=== PATIENT | male | born 1960 | race Two or more races ===

== ENCOUNTER 2021-03-01 02:23 | Emergency (ER) | payer MEDICAID ==
[~2021-03-01] VITALS: Ht 177.8 cm; Wt 93.6 kg
[2021-03-01 02:38] VITALS: BP 142/100
[2021-03-01] MEDS ORDERED: CEPH-585 PO (04:20)
[2021-03-01] MEDS ORDERED: SULF1TAB49 PO (04:20)
== END 2021-03-01 04:43 | disposition home or self-care (01) ==
LOC: ER 02:25
DX: L02.11 Cutaneous abscess of neck (principal); L03.221 Cellulitis of neck; Z79.2 Long term (current) use of antibiotics; Z79.899 Other long term (current) drug therapy
CPT/HCPCS: 99283

== ENCOUNTER 2021-04-05 18:32 | Emergency (ER) | payer MEDICAID, OTHER ==
[~2021-04-05] VITALS: Ht 175.3 cm; Wt 100.0 kg
[~2021-04-05 18:32] MED LIST: CEPH-585 PO
[2021-04-05 20:00] VITALS: BP 139/92
[2021-04-05 20:35] LABS: CLARITY,URINE CLEAR (Clear); COLOR,URINE YELLOW (Yellow); GLUCOSE, URINE NEGATIVE (Neg); KETONES,URINE NEGATIVE (Neg); PROTEIN,URINE NEGATIVE (Neg); UA COLLECTION TYPE CLN CATCH MIDSTREAM
[2021-04-05 20:36] LABS: LEUKOCYTE ESTERASE ,URINE NEGATIVE (Neg); NITRITES, URINE NEGATIVE (Neg); OCCULT BLOOD,URINE TRACE-LYSED (Neg); UROBILINOGEN,URINE 0.2 E.U/dL (0.2-1.0)
[2021-04-05 20:40] LABS: MUCUS STRANDS MODERATE /LPF (Neg); SQUAMOUS EPITHELIAL CELL,UR FEW /LPF (FEW)
[2021-04-05 20:41] LABS: RBC,URINE 0-2 /HPF (0-2)
[2021-04-05 20:42] LABS: BACTERIA,URINE FEW /HPF (Neg); TRANSITIONAL EPI CELLS,URINE FEW /HPF
[2021-04-05 21:01] LABS: BASOPHILS # (AUTO) 0.1 X10'3 (0-0.2); BASOPHILS % (AUTO) 0.9 % (0-1); EOSINOPHILS # (AUTO) 0.4 X10'3 (0-0.9); EOSINOPHILS % (AUTO) 4.4 % (0-6); HEMATOCRIT 48.7 % (42.0-52.0); HEMOGLOBIN 16.8 g/dl (14.0-17.9); LYMPHOCYTES # (AUTO) 2.6 X10'3 (1.1-4.8); LYMPHOCYTES % (AUTO) 28.5 % (21-51); MEAN CORPUSCULAR HEMOGLOBIN 30.8 PG (27.0-31.0); MEAN CORPUSCULAR HGB CONC 34.6 g/dL (33.0-36.5); MEAN CORPUSCULAR VOLUME 89.1 FL (78-98); MEAN PLATELET VOLUME 7.8 FL (7.4-10.4); MONOCYTES # (AUTO) 0.8 X10'3 (0-0.9); NEUTROPHILS # (AUTO) 5.3 X10'3 (1.8-7.7); NEUTROPHILS % (AUTO) 57.2 % (42-75); PLATELET COUNT 323 X10'3 (140-440); RED BLOOD COUNT 5.47 X10'6 (4.70-6.10); RED CELL DISTRIBUTION WIDTH 14.3 % (11.5-14.5); WHITE BLOOD COUNT 9.3 X10'3 (4.5-11.0)
[2021-04-05 21:17] LABS: ALANINE AMINOTRANSFERASE 32 U/L (12-78); ALBUMIN 3.3 G/DL (3.4-5.0); ALBUMIN/GLOBULIN RATIO 0.8 (1.1-1.5); ALKALINE PHOSPHATASE 144 IU/L (46-116); ANION GAP 7 (8-16); ASPARTATE AMINO TRANSFERASE 17 U/L (10-37); BILIRUBIN,TOTAL 0.3 MG/DL (0.1-1.0); BLOOD UREA NITROGEN 18 MG/DL (7-18); BUN/CREATININE RATIO 13.6 (5.4-32.0); CALCIUM 8.9 MG/DL (8.5-10.1); CHLORIDE 106 MMOL/L (99-107); CREATININE 1.32 MG/DL (0.60-1.10); GLUCOSE 99 MG/DL (70-104); POTASSIUM 4.2 MMOL/L (3.5-5.1); SODIUM 142 MMOL/L (135-145); TOTAL CARBON DIOXIDE 28.9 MMOL/L (24-32); TOTAL PROTEIN 7.6 G/DL (6.4-8.2); eGFR 55 ML/MIN
== END 2021-04-06 01:16 | disposition left against medical advice (07) ==
LOC: ER 18:32
DX: R10.9 Unspecified abdominal pain (principal); Z53.21 Procedure and treatment not carried out due to patient leaving prior to being seen by health care provider
CPT/HCPCS: 36415; 80053; 81001; 85025; 87088

== ENCOUNTER 2021-04-27 17:03 | Emergency (ER) | payer OTHER ==
[~2021-04-27] VITALS: Ht 177.8 cm; Wt 104.0 kg
[~2021-04-27 17:03] MED LIST changes: +ALBU8.5H17 INH; +ASPI-1397 PO; +ATOR40TA72 PO; +AZIT-103 PO; +BENA10TA75 PO; +CARV6.253 PO; -CEPH-585 PO; +CLOP75TA34 PO; +FLO0.4C PO; +FURO20TA4 PO; +POTA10TA37 PO
--- NOTE | 2021-04-27 19:32 | NUR ---
pt was not in lobby at 1800 and returned to lobby
[2021-04-27 20:07] LABS: BASOPHILS # (AUTO) 0.1 X10'3 (0-0.2); BASOPHILS % (AUTO) 0.8 % (0-1); EOSINOPHILS # (AUTO) 0.3 X10'3 (0-0.9); EOSINOPHILS % (AUTO) 2.7 % (0-6); HEMATOCRIT 45.2 % (42.0-52.0); HEMOGLOBIN 15.6 g/dl (14.0-17.9); LYMPHOCYTES # (AUTO) 2.3 X10'3 (1.1-4.8); LYMPHOCYTES % (AUTO) 22.3 % (21-51); MEAN CORPUSCULAR HEMOGLOBIN 30.9 PG (27.0-31.0); MEAN CORPUSCULAR HGB CONC 34.4 g/dL (33.0-36.5); MEAN CORPUSCULAR VOLUME 89.8 FL (78-98); MEAN PLATELET VOLUME 8.3 FL (7.4-10.4); MONOCYTES # (AUTO) 1.1 X10'3 (0-0.9); MONOCYTES % (AUTO) 10.7 % (2-12); NEUTROPHILS # (AUTO) 6.5 X10'3 (1.8-7.7); NEUTROPHILS % (AUTO) 63.5 % (42-75); PLATELET COUNT 328 X10'3 (140-440); RED BLOOD COUNT 5.03 X10'6 (4.70-6.10); RED CELL DISTRIBUTION WIDTH 14.6 % (11.5-14.5); WHITE BLOOD COUNT 10.2 X10'3 (4.5-11.0)
[2021-04-27 20:25] LABS: ALANINE AMINOTRANSFERASE 50 U/L (12-78); ALBUMIN/GLOBULIN RATIO 0.8 (1.1-1.5); ALKALINE PHOSPHATASE 112 IU/L (46-116); ANION GAP 10 (8-16); ASPARTATE AMINO TRANSFERASE 21 U/L (10-37); BILIRUBIN,TOTAL 0.4 MG/DL (0.1-1.0); BLOOD UREA NITROGEN 15 MG/DL (7-18); BUN/CREATININE RATIO 11.6 (5.4-32.0); CALCIUM 8.6 MG/DL (8.5-10.1); CHLORIDE 111 MMOL/L (99-107); CREATININE 1.29 MG/DL (0.60-1.10); GLUCOSE 112 MG/DL (70-104); POTASSIUM 4.6 MMOL/L (3.5-5.1); SODIUM 146 MMOL/L (135-145); TOTAL CARBON DIOXIDE 25.2 MMOL/L (24-32); TOTAL PROTEIN 6.6 G/DL (6.4-8.2); eGFR 57 ML/MIN
[2021-04-27 20:31] LABS: C-REACTIVE PROTEIN 0.84 MG/DL (0.0-0.5); MAGNESIUM 2.4 MG/DL (1.5-2.4)
[2021-04-27] MEDS ORDERED: iohexol 350MG/ML 100ml bottle IV ONE (23:22)
[2021-04-28 00:03] VITALS: BP 116/78
[2021-04-28] MEDS ORDERED: NAPR-56 PO (03:03)
== END 2021-04-28 03:30 | disposition home or self-care (01) ==
LOC: ER 17:03
DX: M25.462 Effusion, left knee (principal); Z20.822 Contact with and (suspected) exposure to COVID-19; M25.562 Pain in left knee; R06.02 Shortness of breath; R07.89 Other chest pain; I25.10 Atherosclerotic heart disease of native coronary artery without angina pectoris; I50.9 Heart failure, unspecified; I11.0 Hypertensive heart disease with heart failure; I25.2 Old myocardial infarction; F17.200 Nicotine dependence, unspecified, uncomplicated; F15.90 Other stimulant use, unspecified, uncomplicated; Z72.89 Other problems related to lifestyle; Z60.2 Problems related to living alone; Z79.82 Long term (current) use of aspirin; Z79.2 Long term (current) use of antibiotics; Z79.899 Other long term (current) drug therapy
CPT/HCPCS: 36415; 71045; 71275; 73564; 80053; 83735; 83880; 84484; 85025; 85379; 85651; 86140; 87635; 93005; 99285; C9803; Q9967

== ENCOUNTER 2021-06-01 07:25 | Emergency (ER) | payer MEDICAID, OTHER ==
[~2021-06-01] VITALS: Ht 177.8 cm; Wt 104.5 kg
[~2021-06-01 07:25] MED LIST changes: -AZIT-103 PO
[2021-06-01] MEDS ORDERED: ipratropium/albuterol 3ml nebule NEB ONE (08:05)
[2021-06-01 08:19] LABS: BASOPHILS # (AUTO) 0.1 X10'3 (0-0.2); BASOPHILS % (AUTO) 0.8 % (0-1); EOSINOPHILS # (AUTO) 0.3 X10'3 (0-0.9); EOSINOPHILS % (AUTO) 2.6 % (0-6); HEMATOCRIT 49.3 % (42.0-52.0); HEMOGLOBIN 17.1 g/dl (14.0-17.9); LYMPHOCYTES # (AUTO) 2.4 X10'3 (1.1-4.8); LYMPHOCYTES % (AUTO) 23.4 % (21-51); MEAN CORPUSCULAR HEMOGLOBIN 31.1 PG (27.0-31.0); MEAN CORPUSCULAR HGB CONC 34.7 g/dL (33.0-36.5); MEAN CORPUSCULAR VOLUME 89.7 FL (78-98); MEAN PLATELET VOLUME 8.5 FL (7.4-10.4); MONOCYTES # (AUTO) 1.3 X10'3 (0-0.9); MONOCYTES % (AUTO) 12.3 % (2-12); NEUTROPHILS # (AUTO) 6.2 X10'3 (1.8-7.7); NEUTROPHILS % (AUTO) 60.9 % (42-75); PLATELET COUNT 305 X10'3 (140-440); RED BLOOD COUNT 5.49 X10'6 (4.70-6.10); RED CELL DISTRIBUTION WIDTH 14.5 % (11.5-14.5); WHITE BLOOD COUNT 10.2 X10'3 (4.5-11.0)
[2021-06-01 08:40] LABS: ALANINE AMINOTRANSFERASE 29 U/L (12-78); ALBUMIN 3.4 G/DL (3.4-5.0); ALBUMIN/GLOBULIN RATIO 0.8 (1.1-1.5); ALKALINE PHOSPHATASE 118 IU/L (46-116); ASPARTATE AMINO TRANSFERASE 19 U/L (10-37); BILIRUBIN,TOTAL 0.4 MG/DL (0.1-1.0); BLOOD UREA NITROGEN 16 MG/DL (7-18); BUN/CREATININE RATIO 12.5 (5.4-32.0); CALCIUM 8.9 MG/DL (8.5-10.1); CREATININE 1.28 MG/DL (0.60-1.10); GLUCOSE 102 MG/DL (70-104); TOTAL CARBON DIOXIDE 30.2 MMOL/L (24-32); TOTAL PROTEIN 7.6 G/DL (6.4-8.2); eGFR 57 ML/MIN
[2021-06-01 09:10] LABS: ANION GAP 7 (8-16); CHLORIDE 106 MMOL/L (99-107); POTASSIUM 4.4 MMOL/L (3.5-5.1); SODIUM 143 MMOL/L (135-145)
[2021-06-01 13:16] VITALS: BP 135/91
== END 2021-06-01 13:24 | disposition home or self-care (01) ==
LOC: ER 07:26
DX: I50.9 Heart failure, unspecified (principal); Z20.822 Contact with and (suspected) exposure to COVID-19; R06.02 Shortness of breath; R05.9 Cough, unspecified; I25.10 Atherosclerotic heart disease of native coronary artery without angina pectoris; I11.0 Hypertensive heart disease with heart failure; I25.2 Old myocardial infarction; F15.90 Other stimulant use, unspecified, uncomplicated; Z60.2 Problems related to living alone; Z72.89 Other problems related to lifestyle; Z79.82 Long term (current) use of aspirin; Z79.899 Other long term (current) drug therapy
CPT/HCPCS: 36415; 71045; 80053; 83880; 84484; 85025; 87635; 93005; 94640; 99285; C9803; 94760

== ENCOUNTER 2021-06-23 13:44 | Emergency (ER) | payer MEDICAID ==
[~2021-06-23] VITALS: Ht 177.8 cm; Wt 104.5 kg
[2021-06-23] MEDS ORDERED: acetaminophen 325mg tablet PO ONE (14:35)
[2021-06-23 15:09] LABS: BASOPHILS % (AUTO) 0.5 % (0-1); EOSINOPHILS # (AUTO) 0.3 X10'3 (0-0.9); EOSINOPHILS % (AUTO) 3.4 % (0-6); HEMATOCRIT 50.2 % (42.0-52.0); HEMOGLOBIN 16.9 g/dl (14.0-17.9); LYMPHOCYTES % (AUTO) 22.3 % (21-51); MEAN CORPUSCULAR HEMOGLOBIN 30.2 PG (27.0-31.0); MEAN CORPUSCULAR HGB CONC 33.7 g/dL (33.0-36.5); MEAN CORPUSCULAR VOLUME 89.8 FL (78-98); MEAN PLATELET VOLUME 8.4 FL (7.4-10.4); MONOCYTES % (AUTO) 11.4 % (2-12); NEUTROPHILS # (AUTO) 5.7 X10'3 (1.8-7.7); NEUTROPHILS % (AUTO) 62.4 % (42-75); PLATELET COUNT 286 X10'3 (140-440); RED BLOOD COUNT 5.59 X10'6 (4.70-6.10); RED CELL DISTRIBUTION WIDTH 14.5 % (11.5-14.5); WHITE BLOOD COUNT 9.1 X10'3 (4.5-11.0)
[2021-06-23 15:23] LABS: ALANINE AMINOTRANSFERASE 37 U/L (12-78); ALBUMIN 3.4 G/DL (3.4-5.0); ALBUMIN/GLOBULIN RATIO 0.9 (1.1-1.5); ALKALINE PHOSPHATASE 127 IU/L (46-116); ANION GAP 7 (8-16); ASPARTATE AMINO TRANSFERASE 28 U/L (10-37); BILIRUBIN,TOTAL 0.6 MG/DL (0.1-1.0); BLOOD UREA NITROGEN 20 MG/DL (7-18); BUN/CREATININE RATIO 15.4 (5.4-32.0); CALCIUM 8.9 MG/DL (8.5-10.1); CHLORIDE 104 MMOL/L (99-107); GLUCOSE 82 MG/DL (70-104); POTASSIUM 4.1 MMOL/L (3.5-5.1); SODIUM 143 MMOL/L (135-145); TOTAL CARBON DIOXIDE 31.6 MMOL/L (24-32); TOTAL PROTEIN 7.4 G/DL (6.4-8.2); eGFR 56 ML/MIN
[2021-06-23] MEDS ORDERED: FURO-150 PO (17:17)
[2021-06-23] MEDS ORDERED: FLO0.4C PO (17:33)
[2021-06-23 17:45] VITALS: BP 188/96
== END 2021-06-23 17:46 | disposition home or self-care (01) ==
LOC: ER 13:45
DX: I11.0 Hypertensive heart disease with heart failure (principal); Z20.822 Contact with and (suspected) exposure to COVID-19; I50.9 Heart failure, unspecified; R06.02 Shortness of breath; R51.9 Headache, unspecified; I25.10 Atherosclerotic heart disease of native coronary artery without angina pectoris; I25.2 Old myocardial infarction; F17.200 Nicotine dependence, unspecified, uncomplicated; F15.90 Other stimulant use, unspecified, uncomplicated; Z72.89 Other problems related to lifestyle; Z60.2 Problems related to living alone; Z79.82 Long term (current) use of aspirin; Z79.899 Other long term (current) drug therapy
CPT/HCPCS: 36415; 71045; 80053; 83880; 84145; 85025; 87635; 93005; 99285; C9803

== ENCOUNTER 2021-07-06 20:45 | Emergency (ER) | payer MEDICAID ==
[~2021-07-06] VITALS: Ht 177.8 cm; Wt 101.8 kg
[~2021-07-06 20:45] MED LIST changes: +FURO-150 PO
[2021-07-06 22:03] LABS: BASOPHILS # (AUTO) 0.1 X10'3 (0-0.2); BASOPHILS % (AUTO) 0.7 % (0-1); EOSINOPHILS # (AUTO) 0.4 X10'3 (0-0.9); EOSINOPHILS % (AUTO) 3.3 % (0-6); HEMATOCRIT 47.7 % (42.0-52.0); HEMOGLOBIN 16.1 g/dl (14.0-17.9); LYMPHOCYTES # (AUTO) 1.6 X10'3 (1.1-4.8); LYMPHOCYTES % (AUTO) 13.8 % (21-51); MEAN CORPUSCULAR HEMOGLOBIN 29.8 PG (27.0-31.0); MEAN CORPUSCULAR HGB CONC 33.7 g/dL (33.0-36.5); MEAN CORPUSCULAR VOLUME 88.3 FL (78-98); MEAN PLATELET VOLUME 8.1 FL (7.4-10.4); MONOCYTES # (AUTO) 1.2 X10'3 (0-0.9); MONOCYTES % (AUTO) 10.9 % (2-12); NEUTROPHILS % (AUTO) 71.3 % (42-75); PLATELET COUNT 346 X10'3 (140-440); RED CELL DISTRIBUTION WIDTH 14.8 % (11.5-14.5); WHITE BLOOD COUNT 11.3 X10'3 (4.5-11.0)
[2021-07-06 22:17] LABS: ALANINE AMINOTRANSFERASE 27 U/L (12-78); ALBUMIN 3.2 G/DL (3.4-5.0); ALBUMIN/GLOBULIN RATIO 0.8 (1.1-1.5); ALKALINE PHOSPHATASE 109 IU/L (46-116); ANION GAP 9 (8-16); ASPARTATE AMINO TRANSFERASE 22 U/L (10-37); BILIRUBIN,TOTAL 0.5 MG/DL (0.1-1.0); BLOOD UREA NITROGEN 20 MG/DL (7-18); BUN/CREATININE RATIO 13.6 (5.4-32.0); CALCIUM 8.3 MG/DL (8.5-10.1); CHLORIDE 103 MMOL/L (99-107); CREATININE 1.47 MG/DL (0.60-1.10); GLUCOSE 103 MG/DL (70-104); POTASSIUM 3.7 MMOL/L (3.5-5.1); SODIUM 138 MMOL/L (135-145); TOTAL CARBON DIOXIDE 25.9 MMOL/L (24-32); eGFR 49 ML/MIN
[2021-07-06] MEDS ORDERED: dexamethasone sod phosphate 10mg/ml inj PO STA (22:47)
--- NOTE | 2021-07-06 22:57 | NUR ---
I don't have a med list and i don't know them by heart"
[2021-07-06] MEDS ORDERED: AZIT-83 PO (23:14)
[2021-07-06] MEDS ORDERED: IBUP-1986 PO (23:14)
[2021-07-06] MEDS ORDERED: PRED20TA PO (23:14)
[2021-07-06 23:34] VITALS: BP 126/93
== END 2021-07-06 23:38 | disposition home or self-care (01) ==
LOC: ER 20:45
DX: J40 Bronchitis, not specified as acute or chronic (principal); Z20.822 Contact with and (suspected) exposure to COVID-19; I25.10 Atherosclerotic heart disease of native coronary artery without angina pectoris; I11.0 Hypertensive heart disease with heart failure; I50.9 Heart failure, unspecified; I25.2 Old myocardial infarction; F15.90 Other stimulant use, unspecified, uncomplicated; Z72.89 Other problems related to lifestyle; Z79.82 Long term (current) use of aspirin; Z79.2 Long term (current) use of antibiotics; Z79.899 Other long term (current) drug therapy
CPT/HCPCS: 36415; 71045; 80053; 83880; 84484; 85025; 87635; 93005; 99285; C9803; J1100

== ENCOUNTER 2021-11-11 09:08 | Emergency (ER) | payer MEDICAID ==
[~2021-11-11] VITALS: Ht 177.8 cm; Wt 100.0 kg
[~2021-11-11 09:08] MED LIST changes: -FURO-150 PO; +IBUP-1986 PO
[2021-11-11 09:16] VITALS: BP 129/95
[2021-11-11] MEDS ORDERED: FLO0.4C PO (10:31)
[2021-11-11] MEDS ORDERED: CLOP75TA15 PO (10:31)
[2021-11-11] MEDS ORDERED: FURO-150 PO (10:32)
[2021-11-11] MEDS ORDERED: POTA-188 PO (10:33)
[2021-11-11] MEDS ORDERED: CARV-49 PO (10:33)
== END 2021-11-11 10:49 | disposition home or self-care (01) ==
LOC: ER 09:10
DX: I11.0 Hypertensive heart disease with heart failure (principal); I25.10 Atherosclerotic heart disease of native coronary artery without angina pectoris; Z76.0 Encounter for issue of repeat prescription; F15.10 Other stimulant abuse, uncomplicated
CPT/HCPCS: 99281

== ENCOUNTER 2021-11-25 02:00 | Emergency (ER) | payer MEDICAID ==
[~2021-11-25] VITALS: Ht 177.8 cm; Wt 100.0 kg
[~2021-11-25 02:00] MED LIST changes: +CARV-49 PO; +CLOP75TA15 PO; +FURO-150 PO
[2021-11-25] MEDS ORDERED: LIDOcaine/epinephrine/tetracaine TOPICAL sol 3 ML syringe TOP ONE (02:45)
[2021-11-25 03:21] VITALS: BP 130/82
[2021-11-25] MEDS ORDERED: bacitracin 15gm ointment TP ONE (03:50)
== END 2021-11-25 04:02 | disposition home or self-care (01) ==
LOC: ER 02:00
DX: S91.312A Laceration without foreign body, left foot, initial encounter (principal); I11.0 Hypertensive heart disease with heart failure; F15.10 Other stimulant abuse, uncomplicated; Z79.899 Other long term (current) drug therapy; W22.8XXA Striking against or struck by other objects, initial encounter; Y93.89 Activity, other specified; Y92.89 Other specified places as the place of occurrence of the external cause; Y99.8 Other external cause status
CPT/HCPCS: 99283; J3490

== ENCOUNTER 2022-01-24 14:35 | Inpatient (IN) | payer MEDICAID ==
[~2022-01-24] VITALS: Ht 177.8 cm; Wt 109.1 kg
[~2022-01-24 14:35] MED LIST changes: -FURO-150 PO
[2022-01-24] MEDS ORDERED: normal saline 1000ML IV soln IVB ONE (14:50)
[2022-01-24 15:05] LABS: BASOPHILS % (AUTO) 0.1 % (0-1); EOSINOPHILS % (AUTO) 0 % (0-6); HEMOGLOBIN 17.6 g/dl (14.0-17.9); LYMPHOCYTES # (AUTO) 1.3 X10'3 (1.1-4.8); LYMPHOCYTES % (AUTO) 6.5 % (21-51); MEAN CORPUSCULAR HEMOGLOBIN 30.4 PG (27.0-31.0); MEAN CORPUSCULAR HGB CONC 33.8 g/dL (33.0-36.5); MEAN CORPUSCULAR VOLUME 89.7 FL (78-98); MEAN PLATELET VOLUME 8.2 FL (7.4-10.4); MONOCYTES # (AUTO) 1.6 X10'3 (0-0.9); MONOCYTES % (AUTO) 7.7 % (2-12); NEUTROPHILS # (AUTO) 17.6 X10'3 (1.8-7.7); NEUTROPHILS % (AUTO) 85.7 % (42-75); PLATELET COUNT 218 X10'3 (140-440); RED CELL DISTRIBUTION WIDTH 15.7 % (11.5-14.5); WHITE BLOOD COUNT 20.5 X10'3 (4.5-11.0)
[2022-01-24 15:19] LABS: ALANINE AMINOTRANSFERASE 45 U/L (12-78); ALBUMIN 3.1 G/DL (3.4-5.0); ALBUMIN/GLOBULIN RATIO 0.6 (1.1-1.5); ANION GAP 11 (8-16); ASPARTATE AMINO TRANSFERASE 51 U/L (10-37); BILIRUBIN,TOTAL 0.8 MG/DL (0.1-1.0); BLOOD UREA NITROGEN 14 MG/DL (7-18); BUN/CREATININE RATIO 9.1 (5.4-32.0); CALCIUM 8.9 MG/DL (8.5-10.1); CHLORIDE 102 MMOL/L (99-107); CREATININE 1.54 MG/DL (0.60-1.10); GLUCOSE 118 MG/DL (70-104); POTASSIUM 3.2 MMOL/L (3.5-5.1); SODIUM 137 MMOL/L (135-145); TOTAL CARBON DIOXIDE 24.3 MMOL/L (24-32); TOTAL PROTEIN 8.3 G/DL (6.4-8.2); eGFR 46 ML/MIN
[2022-01-24 15:53] LABS: CLARITY,URINE CLEAR (Clear); GLUCOSE, URINE NEGATIVE (Neg); KETONES,URINE NEGATIVE (Neg); LEUKOCYTE ESTERASE ,URINE NEGATIVE (Neg); NITRITES, URINE NEGATIVE (Neg); OCCULT BLOOD,URINE MODERATE (Neg); PH,URINE 7.5 (4.8-8.0); PROTEIN,URINE >=300 mg/dl (Neg)
[2022-01-24 15:54] LABS: URINE AMPHETAMINE SCREEN NEGATIVE (Neg); URINE BARBITUATE SCREEN NEGATIVE (Neg); URINE BENZODIAZEPINES SCREEN NEGATIVE (Neg); URINE CANNABINOID SCREEN NEGATIVE (Neg); URINE COCAINE SCREEN NEGATIVE (Neg); URINE METHADONE SCREEN NEGATIVE (Neg); URINE OPIATE SCREEN NEGATIVE (Neg); URINE PHENCYCLIDINE SCREEN NEGATIVE (Neg)
[2022-01-24 15:55] LABS: ALKALINE PHOSPHATASE 107 IU/L (46-116); ETHANOL < 0.010 GM/DL (0.0-0.010)
[2022-01-24 15:56] LABS: COLOR,URINE DARK YELLOW (Yellow); UA COLLECTION TYPE CLN CATCH MIDSTREAM
[2022-01-24 15:59] LABS: BACTERIA,URINE NONE SEEN /HPF (Neg); SQUAMOUS EPITHELIAL CELL,UR FEW /LPF (FEW)
[2022-01-24 16:00] LABS: TRANSITIONAL EPI CELLS,URINE FEW /HPF
[2022-01-24] MEDS ORDERED: CefTRIAXone 2gm/D5W 50ml BAG 50 ML IV ONE (16:10)
[2022-01-24] MEDS ORDERED: normal saline 1000ML IV soln IV ONE (16:10)
[2022-01-24] MEDS ORDERED: magnesium Cl slow-release 64mg tablet PO PRN (17:25)
[2022-01-24] MEDS ORDERED: POTASSIUM BICARB 20meq eff tab 20 MEQ TABLET.EFF PO PRN (17:25)
[2022-01-24] MEDS ORDERED: magnesium 2GM in 50ml NS 50 ML IV PRN (17:25)
[2022-01-24] MEDS ORDERED: acetaminophen 325mg tablet PO PRN (17:25)
[2022-01-24] MEDS ORDERED: ondansetron/PF 4mg/2ml inj IV PRN (17:25)
[2022-01-24] MEDS ORDERED: magnesium hydroxide 30ml (MOM) UD suspension PO PRN (17:25)
[2022-01-24] MEDS ORDERED: potassium CL 10mEq/100ml bag 100 ML IV PRN (17:25)
[2022-01-24] MEDS ORDERED: magnesium 4gm in 100ml NS 100 ML IV PRN (17:25)
[2022-01-24] MEDS ORDERED: mag hydrox/Alum hydrox/simeth 30ml oral suspension PO PRN (17:25)
[2022-01-24] MEDS ORDERED: vancomycin 1,750 MG in NS 350ml IV soln IV ONE (18:00)
--- NOTE | 2022-01-24 18:29 | NUR ---
Received patient from [facility], awake and oriented x2-3. On room air, no resp distress. Pt appears uncomfortable but denied any pain on my assessment. So its possibly metabolic demand. he is ST on monitor, hr in 120s-130s. Dr Matias and Anjel Mckinney both notified. Iv bolus in progress as ordered. Rocephin started. Pharm contacted for Iv vanco dose. Report given to pm rn for resumption of care.
[2022-01-24 19:15] LABS: MAGNESIUM 1.7 MG/DL (1.5-2.4); POTASSIUM 3.3 MMOL/L (3.5-5.1)
[2022-01-24] MEDS: K and/or MAG REPLACEMENT MC SCH (19:50)
[2022-01-24] MEDS: docusate sod 100mg capsule PO SCH (19:55)
[2022-01-24] MEDS: normal saline 1000ml 1,000 ML IV SCH (19:59)
--- NOTE | 2022-01-24 22:44 | NUR ---
Page out to Dr. Del Rio @ [address]. [address] Del Rio verbal order Ibuprofen 600mg [id number] Prn.
[2022-01-24] MEDS ORDERED: ibuprofen 200mg tablet PO PRN ×2 (22:50→23:22)
[2022-01-24] MEDS ORDERED: ibuprofen 200mg tablet PO SCH (23:22)
[2022-01-25] MEDS: normal saline 1000ml 1,000 ML IV SCH ×2 (04:12→13:31)
--- NOTE | 2022-01-25 04:48 | NUR ---
PT PLACED ON 1L O2 WHILE SLEEPING FOR SLEEP APNEA.
[2022-01-25] MEDS ORDERED: vancomycin/NS 1 GM ADD-VANTAGE 250 ML IV SCH ×2 (06:00→20:00)
[2022-01-25 07:00] LABS: BASOPHILS % (AUTO) 0.2 % (0-1); EOSINOPHILS % (AUTO) 0 % (0-6); HEMATOCRIT 44.8 % (42.0-52.0); HEMOGLOBIN 15.3 g/dl (14.0-17.9); LYMPHOCYTES # (AUTO) 1.4 X10'3 (1.1-4.8); LYMPHOCYTES % (AUTO) 7.6 % (21-51); MEAN CORPUSCULAR HEMOGLOBIN 30.6 PG (27.0-31.0); MEAN CORPUSCULAR HGB CONC 34.1 g/dL (33.0-36.5); MEAN CORPUSCULAR VOLUME 89.9 FL (78-98); MEAN PLATELET VOLUME 9.3 FL (7.4-10.4); MONOCYTES # (AUTO) 0.9 X10'3 (0-0.9); MONOCYTES % (AUTO) 4.9 % (2-12); NEUTROPHILS # (AUTO) 16.1 X10'3 (1.8-7.7); NEUTROPHILS % (AUTO) 87.3 % (42-75); PLATELET COUNT 174 X10'3 (140-440); RED BLOOD COUNT 4.98 X10'6 (4.70-6.10); WHITE BLOOD COUNT 18.5 X10'3 (4.5-11.0)
[2022-01-25] MEDS: K and/or MAG REPLACEMENT MC SCH ×2 (07:17→18:43)
[2022-01-25 07:28] LABS: ALBUMIN 2.2 G/DL (3.4-5.0); ANION GAP 11 (8-16); BLOOD UREA NITROGEN 17 MG/DL (7-18); BUN/CREATININE RATIO 11.3 (5.4-32.0); CALCIUM 7.6 MG/DL (8.5-10.1); CHLORIDE 107 MMOL/L (99-107); CREATININE 1.51 MG/DL (0.60-1.10); GLUCOSE 111 MG/DL (70-104); MAGNESIUM 1.6 MG/DL (1.5-2.4); POTASSIUM 3.8 MMOL/L (3.5-5.1); SODIUM 144 MMOL/L (135-145); TOTAL CARBON DIOXIDE 25.6 MMOL/L (24-32); eGFR 47 ML/MIN
[2022-01-25] MEDS: CefTRIAXone/D5W-Rocephin 1gm 50 ML IV SCH (07:49)
[2022-01-25] MEDS: docusate sod 100mg capsule PO SCH ×2 (07:49→21:10)
[2022-01-25] MEDS: enoxaparin 40mg/0.4ml syringe SUBCUT SCH (07:50)
--- NOTE | 2022-01-25 08:00 | NUR ---
Patient is ao x4. Patient is tachypneic, patient speaking infull sentences. Patient c/o left upper leg pain.
--- NOTE | 2022-01-25 12:01 | NUR ---
PT STATES OK TO GIVE RICK VASQUEZ ANY INFO SHE IS HIS EMERGENCY CONTACT. [phone]
[2022-01-25] MEDS ORDERED: ALBU8.5H17 INH (13:31)
--- NOTE | 2022-01-25 13:32 | NUR ---
assisting RN with pt care, pt is resting quietly on [facility] rec complete, Dr Rosanne kc, emptied urinal 300 dark yellow urine, gave pt tooth brush etc
--- NOTE | 2022-01-25 14:24 | NUR ---
Image of patient's wound takenand filed in patient's chart.
[2022-01-25] MEDS: furosemide 10 MG/1 ML 10ml inj IV SCH (18:37)
--- NOTE | 2022-01-25 19:22 | NUR ---
PT SAT UP AND ATE DINNER TRAY.
[2022-01-25] MEDS ORDERED: ALBUTEROL INHALER 1 PUFF/90 MCG INHALation IH PRN (19:40)
[2022-01-25] MEDS: tamsulosin 0.4mg capsule PO SCH (21:10)
[2022-01-25] MEDS ORDERED: REMDESIVIR INJ 200 MG in normal saline 100ml IV soln 100 ML IV ONE (22:40)
[2022-01-25] MEDS: dexamethasone 4mg/ml inj IV SCH (23:17)
[2022-01-26] MEDS ORDERED: VANCOMYCIN LEVEL IV ONE (07:30)
[2022-01-26 07:56] LABS: BASOPHILS % (AUTO) 0.2 % (0-1); EOSINOPHILS % (AUTO) 0 % (0-6); LYMPHOCYTES # (AUTO) 0.8 X10'3 (1.1-4.8); LYMPHOCYTES % (AUTO) 5.2 % (21-51); MEAN CORPUSCULAR HEMOGLOBIN 30.6 PG (27.0-31.0); MEAN CORPUSCULAR HGB CONC 34.7 g/dL (33.0-36.5); MEAN PLATELET VOLUME 9.4 FL (7.4-10.4); MONOCYTES # (AUTO) 0.3 X10'3 (0-0.9); NEUTROPHILS % (AUTO) 92.6 % (42-75); PLATELET COUNT 143 X10'3 (140-440); RED BLOOD COUNT 5.22 X10'6 (4.70-6.10); RED CELL DISTRIBUTION WIDTH 15.9 % (11.5-14.5); WHITE BLOOD COUNT 15.2 X10'3 (4.5-11.0)
[2022-01-26 08:00] LABS: ALBUMIN 2.4 G/DL (3.4-5.0); ANION GAP 15 (8-16); BLOOD UREA NITROGEN 24 MG/DL (7-18); BUN/CREATININE RATIO 19.4 (5.4-32.0); C-REACTIVE PROTEIN 21.72 MG/DL (0.0-0.5); CALCIUM 8.3 MG/DL (8.5-10.1); CHLORIDE 104 MMOL/L (99-107); CREATININE 1.24 MG/DL (0.60-1.10); GLUCOSE 144 MG/DL (70-104); LACTATE DEHYDROGENASE 391 U/L (85-227); MAGNESIUM 1.9 MG/DL (1.5-2.4); PHOSPHORUS 2.8 MG/DL (2.3-4.5); POTASSIUM 3.9 MMOL/L (3.5-5.1); SODIUM 138 MMOL/L (135-145); TOTAL CARBON DIOXIDE 19.2 MMOL/L (24-32); VANCOMYCIN,TROUGH 12.4 UG/ML (6.0-14.0); eGFR 59 ML/MIN
[2022-01-26] MEDS: K and/or MAG REPLACEMENT MC SCH ×2 (08:00→20:00)
[2022-01-26] MEDS: lisinopril 10 MG tablet PO SCH (08:00)
[2022-01-26] MEDS: carvedilol 6.25mg tablet PO SCH ×2 (08:45→17:30)
[2022-01-26] MEDS: dexamethasone 4mg/ml inj IV SCH ×2 (08:48→20:59)
[2022-01-26] MEDS: furosemide 10 MG/1 ML 10ml inj IV SCH ×2 (08:48→20:59)
[2022-01-26] MEDS: enoxaparin 40mg/0.4ml syringe SUBCUT SCH (08:48)
[2022-01-26] MEDS: aspirin 81mg, enteric-coated 1 TAB TABLET.DR PO SCH (08:49)
[2022-01-26] MEDS: atorvastatin 20mg tablet PO SCH (08:49)
[2022-01-26] MEDS: clopidogrel 75mg tablet PO SCH (08:49)
[2022-01-26] MEDS: docusate sod 100mg capsule PO SCH ×2 (08:49→20:00)
[2022-01-26] MEDS: CefTRIAXone/D5W-Rocephin 1gm 50 ML IV SCH (08:49)
[2022-01-26] MEDS: REMDESIVIR INJ 100 MG in normal saline 100ml IV soln 100 ML IV SCH (09:15)
[2022-01-26] MEDS: VANCOmycin 1250MG/NS 250ml Bag 250 ML IV SCH (13:24)
--- NOTE | 2022-01-26 18:42 | NUR ---
pt. sitting up in bed eating dinner. axox4, even and unlabored respirations.
[2022-01-26] MEDS: tamsulosin 0.4mg capsule PO SCH (20:59)
[2022-01-27] MEDS: VANCOmycin 1250MG/NS 250ml Bag 250 ML IV SCH ×2 (00:44→14:34)
[2022-01-27 07:45] LABS: BASOPHILS % (AUTO) 0.1 % (0-1); EOSINOPHILS % (AUTO) 0 % (0-6); HEMATOCRIT 47.5 % (42.0-52.0); HEMOGLOBIN 16.1 g/dl (14.0-17.9); LYMPHOCYTES % (AUTO) 5.5 % (21-51); MEAN CORPUSCULAR HEMOGLOBIN 30.6 PG (27.0-31.0); MEAN CORPUSCULAR VOLUME 89.9 FL (78-98); MEAN PLATELET VOLUME 10.8 FL (7.4-10.4); MONOCYTES # (AUTO) 0.9 X10'3 (0-0.9); MONOCYTES % (AUTO) 4.6 % (2-12); NEUTROPHILS # (AUTO) 17.1 X10'3 (1.8-7.7); NEUTROPHILS % (AUTO) 89.8 % (42-75); PLATELET COUNT 215 X10'3 (140-440); RED BLOOD COUNT 5.28 X10'6 (4.70-6.10); RED CELL DISTRIBUTION WIDTH 15.9 % (11.5-14.5); WHITE BLOOD COUNT 19.1 X10'3 (4.5-11.0)
[2022-01-27 07:50] LABS: D-DIMER 1.06 MG/L FEU (0-0.50)
[2022-01-27] MEDS: aspirin 81mg, enteric-coated 1 TAB TABLET.DR PO SCH (08:00)
[2022-01-27 08:06] LABS: ALBUMIN 2.4 G/DL (3.4-5.0); ANION GAP 9 (8-16); BLOOD UREA NITROGEN 34 MG/DL (7-18); BUN/CREATININE RATIO 26.4 (5.4-32.0); C-REACTIVE PROTEIN 12.46 MG/DL (0.0-0.5); CALCIUM 8.7 MG/DL (8.5-10.1); CHLORIDE 103 MMOL/L (99-107); CREATININE 1.29 MG/DL (0.60-1.10); GLUCOSE 153 MG/DL (70-104); LACTATE DEHYDROGENASE 308 U/L (85-227); MAGNESIUM 2.2 MG/DL (1.5-2.4); PHOSPHORUS 3.2 MG/DL (2.3-4.5); POTASSIUM 4.3 MMOL/L (3.5-5.1); SODIUM 138 MMOL/L (135-145); TOTAL CARBON DIOXIDE 25.8 MMOL/L (24-32); eGFR 57 ML/MIN
[2022-01-27] MEDS: dexamethasone 4mg/ml inj IV SCH ×2 (09:01→20:35)
[2022-01-27] MEDS: furosemide 10 MG/1 ML 10ml inj IV SCH ×2 (09:01→20:19)
[2022-01-27] MEDS: docusate sod 100mg capsule PO SCH ×2 (09:05→19:31)
[2022-01-27] MEDS: CefTRIAXone/D5W-Rocephin 1gm 50 ML IV SCH (09:05)
[2022-01-27] MEDS: clopidogrel 75mg tablet PO SCH (09:06)
[2022-01-27] MEDS: lisinopril 10 MG tablet PO SCH (09:07)
[2022-01-27] MEDS: atorvastatin 20mg tablet PO SCH (09:08)
[2022-01-27] MEDS: enoxaparin 40mg/0.4ml syringe SUBCUT SCH (09:08)
[2022-01-27 09:28] LABS: ANISOCYTOSIS 1+; BURR CELLS 1+; LARGE PLATELETS FEW; PLATELET ESTIMATE NORMAL; TOTAL CELLS COUNTED 100; TOXIC GRANULATION 1+
[2022-01-27] MEDS: carvedilol 6.25mg tablet PO SCH ×2 (09:34→17:51)
[2022-01-27] MEDS: POTASSIUM BICARB 20meq eff tab 20 MEQ TABLET.EFF PO PRN ×2 (09:37→14:38)
[2022-01-27] MEDS: K and/or MAG REPLACEMENT MC SCH ×2 (09:37→19:31)
[2022-01-27] MEDS: REMDESIVIR INJ 100 MG in normal saline 100ml IV soln 100 ML IV SCH (09:39)
--- NOTE | 2022-01-27 11:15 | NUR ---
remdesivir having difficulties infusing due to position of IV, attempting to continue infusion
--- NOTE | 2022-01-27 14:06 | NUR ---
patient received approximately half of remdesivir infusion, IV not patent at this time. vanco med delay due to no IV access.
--- NOTE | 2022-01-27 16:54 | NUR ---
PAGED FOR UPDATE ON ADMISSION/DISCHARGE
--- NOTE | 2022-01-27 17:22 | NUR ---
PER DR HUMMEL, PATIENT TO BE MONITORED FOR ONE MORE DAY AND WEANED OFF OXYGEN
[2022-01-27] MEDS: tamsulosin 0.4mg capsule PO SCH (21:27)
[2022-01-28] MEDS ORDERED: VANCOMYCIN LEVEL IV ONE (00:30)
--- NOTE | 2022-01-28 02:40 | NUR ---
IV NOT PATENT AT THIS TIME. VANCO ADMINISTRATION DELAYED DUE TO LACK OF ACCESS.
[2022-01-28] MEDS: VANCOmycin 1250MG/NS 250ml Bag 250 ML IV SCH (03:12)
--- NOTE | 2022-01-28 03:12 | NUR ---
RN SPOKE WITH JE FITZGERALD ABOUT LACK OF IV ACCESS. JE GAVE VERBAL ORDER TO SKIP 0100 DOSE OF VANCO. PT IS OKAY WITH THIS AND DOES NOT WANT ANOTHER IV AT THIS TIME
--- NOTE | 2022-01-28 04:00 | NUR ---
Pt having periods of sleep apnea in which O2 dips to low 80's. RN placed pt on 2L nc and patient is satting at 97%
--- NOTE | 2022-01-28 06:30 | NUR ---
Assumed patient care at time. Patient resting comfortably on stretcher.
[2022-01-28] MEDS: K and/or MAG REPLACEMENT MC SCH ×2 (08:00→20:26)
[2022-01-28] MEDS: clopidogrel 75mg tablet PO SCH (08:00)
[2022-01-28] MEDS: lisinopril 10 MG tablet PO SCH (08:00)
[2022-01-28] MEDS: aspirin 81mg, enteric-coated 1 TAB TABLET.DR PO SCH (08:00)
[2022-01-28] MEDS: atorvastatin 20mg tablet PO SCH (08:00)
[2022-01-28] MEDS: carvedilol 6.25mg tablet PO SCH ×2 (08:00→17:48)
[2022-01-28] MEDS: enoxaparin 40mg/0.4ml syringe SUBCUT SCH (08:30)
[2022-01-28] MEDS: docusate sod 100mg capsule PO SCH ×2 (08:30→20:25)
[2022-01-28 09:21] LABS: ALBUMIN 2.5 G/DL (3.4-5.0); ANION GAP 8 (8-16); BLOOD UREA NITROGEN 43 MG/DL (7-18); BUN/CREATININE RATIO 33.9 (5.4-32.0); C-REACTIVE PROTEIN 5.85 MG/DL (0.0-0.5); CALCIUM 8.7 MG/DL (8.5-10.1); CHLORIDE 102 MMOL/L (99-107); CREATININE 1.27 MG/DL (0.60-1.10); GLUCOSE 128 MG/DL (70-104); LACTATE DEHYDROGENASE 293 U/L (85-227); MAGNESIUM 2.2 MG/DL (1.5-2.4); PHOSPHORUS 4.8 MG/DL (2.3-4.5); POTASSIUM 4.6 MMOL/L (3.5-5.1); SODIUM 139 MMOL/L (135-145); TOTAL CARBON DIOXIDE 29.4 MMOL/L (24-32); eGFR 58 ML/MIN
[2022-01-28 09:22] LABS: BASOPHILS % (AUTO) 0.1 % (0-1); EOSINOPHILS % (AUTO) 0 % (0-6); HEMATOCRIT 47.4 % (42.0-52.0); HEMOGLOBIN 16.2 g/dl (14.0-17.9); LYMPHOCYTES # (AUTO) 1.3 X10'3 (1.1-4.8); LYMPHOCYTES % (AUTO) 5.6 % (21-51); MEAN CORPUSCULAR HEMOGLOBIN 30.6 PG (27.0-31.0); MEAN CORPUSCULAR HGB CONC 34.1 g/dL (33.0-36.5); MEAN CORPUSCULAR VOLUME 89.8 FL (78-98); MEAN PLATELET VOLUME 10.7 FL (7.4-10.4); MONOCYTES # (AUTO) 1.3 X10'3 (0-0.9); MONOCYTES % (AUTO) 5.5 % (2-12); NEUTROPHILS # (AUTO) 20.3 X10'3 (1.8-7.7); NEUTROPHILS % (AUTO) 88.8 % (42-75); PLATELET COUNT 246 X10'3 (140-440); RED BLOOD COUNT 5.28 X10'6 (4.70-6.10); RED CELL DISTRIBUTION WIDTH 15.9 % (11.5-14.5); WHITE BLOOD COUNT 22.9 X10'3 (4.5-11.0)
[2022-01-28 09:31] LABS: D-DIMER 1.56 MG/L FEU (0-0.50)
--- NOTE | 2022-01-28 09:32 | NUR ---
Dr. Lay paged about patient c/o increase burning with urination and increasing pain of left lower leg.
[2022-01-28 09:47] LABS: PLATELET ESTIMATE NORMAL; TOTAL CELLS COUNTED 100
[2022-01-28 09:48] LABS: ANISOCYTOSIS 1+
[2022-01-28] MEDS: CefTRIAXone/D5W-Rocephin 1gm 50 ML IV SCH (12:30)
--- NOTE | 2022-01-28 12:30 | NUR ---
IV line established. Missed medications given.
[2022-01-28] MEDS: dexamethasone 4mg/ml inj IV SCH ×2 (13:06→20:22)
[2022-01-28] MEDS: furosemide 10 MG/1 ML 10ml inj IV SCH ×2 (13:07→20:24)
[2022-01-28] MEDS: REMDESIVIR INJ 100 MG in normal saline 100ml IV soln 100 ML IV SCH (13:07)
[2022-01-28] MEDS ORDERED: VANCOmycin 1250MG/NS 250ml Bag 250 ML IV SCH (13:21)
--- NOTE | 2022-01-28 14:00 | NUR ---
620 ml urine disposed.
[2022-01-28] MEDS ORDERED: VANCOmycin 1250MG/NS 250ml Bag 250 ML IV ONE (14:30)
--- NOTE | 2022-01-28 17:01 | NUR ---
Report given to ESTELLA Arciniega.
--- NOTE | 2022-01-28 17:47 | NUR ---
Patient transported to PCU, via wheelchair. Patient is ao x 4. ESTELLA Arciniega receiving note.
[2022-01-28 18:00] VITALS: BP 99/74
--- NOTE | 2022-01-28 18:49 | NUR ---
Problems reprioritized. Patient report given, questions answered & plan of care reviewed with ESTELLA Mathur.
--- NOTE | 2022-01-28 18:54 | NUR ---
Patient in room PCU 3010. I have received report from Suze SORIA and had the opportunity to ask questions and assume patient care.
[2022-01-28] MEDS: tamsulosin 0.4mg capsule PO SCH (20:25)
[2022-01-28 22:00] VITALS: BP 121/84
--- NOTE | 2022-01-28 23:35 | NUR ---
Dr Oswald, 3010 Orestes Barreto complain of left lower back pain 10/, current has Motrin and Tylenol for fever, no pain med order, please advise. NKDA.Thank you , Vladimir Pena [facility] RN
[2022-01-28] MEDS ORDERED: HYDROcodone/acetaminophen 5mg/325mg tablet PO ONE (23:45)
[2022-01-29 02:00] VITALS: BP 95/70
[2022-01-29] MEDS: VANCOMYCIN 1,500MG inj. 1,500 MG in normal saline 500ml IV soln 300 ML IV SCH ×2 (02:26→16:56)
--- NOTE | 2022-01-29 04:01 | NUR ---
Got report from NICANOR Arciniega RN, patient is lying in bed without uncomfortable, call light is on reach.
[2022-01-29 06:46] LABS: D-DIMER 1.09 MG/L FEU (0-0.50)
--- NOTE | 2022-01-29 06:46 | NUR ---
Patient in room PCU 3010. I have received report from Vladimir SORIA and had the opportunity to ask questions and assume patient care.
--- NOTE | 2022-01-29 06:54 | NUR ---
Problems reprioritized. Patient report given, questions answered & plan of care reviewed with Lindy SORIA.
[2022-01-29 06:58] LABS: BASOPHILS % (AUTO) 0.1 % (0-1); EOSINOPHILS % (AUTO) 0 % (0-6); HEMATOCRIT 44.4 % (42.0-52.0); HEMOGLOBIN 14.9 g/dl (14.0-17.9); LYMPHOCYTES # (AUTO) 1.2 X10'3 (1.1-4.8); LYMPHOCYTES % (AUTO) 4.8 % (21-51); MEAN CORPUSCULAR HEMOGLOBIN 30.4 PG (27.0-31.0); MEAN CORPUSCULAR HGB CONC 33.6 g/dL (33.0-36.5); MEAN CORPUSCULAR VOLUME 90.4 FL (78-98); MEAN PLATELET VOLUME 10.6 FL (7.4-10.4); MONOCYTES # (AUTO) 1.4 X10'3 (0-0.9); MONOCYTES % (AUTO) 5.5 % (2-12); NEUTROPHILS # (AUTO) 23.4 X10'3 (1.8-7.7); NEUTROPHILS % (AUTO) 89.6 % (42-75); PLATELET COUNT 274 X10'3 (140-440); RED BLOOD COUNT 4.91 X10'6 (4.70-6.10); RED CELL DISTRIBUTION WIDTH 15.6 % (11.5-14.5)
[2022-01-29 07:00] VITALS: BP 95/56
[2022-01-29 07:07] LABS: ALBUMIN 2.3 G/DL (3.4-5.0); ANION GAP 8 (8-16); BLOOD UREA NITROGEN 40 MG/DL (7-18); BUN/CREATININE RATIO 34.8 (5.4-32.0); C-REACTIVE PROTEIN 3.02 MG/DL (0.0-0.5); CALCIUM 8.3 MG/DL (8.5-10.1); CHLORIDE 104 MMOL/L (99-107); CREATININE 1.15 MG/DL (0.60-1.10); GLUCOSE 137 MG/DL (70-104); LACTATE DEHYDROGENASE 244 U/L (85-227); PHOSPHORUS 4.2 MG/DL (2.3-4.5); POTASSIUM 4.3 MMOL/L (3.5-5.1); SODIUM 137 MMOL/L (135-145); TOTAL CARBON DIOXIDE 25.5 MMOL/L (24-32); eGFR 65 ML/MIN
[2022-01-29 07:22] LABS: WHITE BLOOD COUNT 26.1 X10'3 (4.5-11.0)
[2022-01-29] MEDS: lisinopril 10 MG tablet PO SCH (08:00)
[2022-01-29] MEDS: K and/or MAG REPLACEMENT MC SCH ×2 (08:00→20:00)
[2022-01-29 08:47] LABS: TOTAL CELLS COUNTED 100
[2022-01-29 08:49] LABS: BURR CELLS FEW; PLATELET ESTIMATE NORMAL; POLYCHROMASIA 1+; TEAR DROP CELLS FEW
[2022-01-29 08:50] LABS: LARGE PLATELETS FEW; STOMATOCYTES FEW
--- NOTE | 2022-01-29 09:19 | NUR ---
Initial; Pt admitted w/ sepsis, LLE cellulitis, encephalopathy, Covid, and UTI per EMR. Currently on Heart Healthy diet though only has 1 meal documented, which is 100%. If pt has been consuming 100% of meals will still fall short of meeting protein needs. Will provide double protein BID to help meet increased needs. LBM 01/28 receiving routine colace, Will continue to monitor. Recs: 1. Continue Heart Healthy diet as tolerated 2. Double protein BIDBD 3. Bowel care per rx 4. Scaled wts Addendum: 01/29/22 at [address] Amended: Links added.
[2022-01-29 11:00] VITALS: BP 107/88
[2022-01-29] MEDS: REMDESIVIR INJ 100 MG in normal saline 100ml IV soln 100 ML IV SCH (11:16)
[2022-01-29] MEDS: carvedilol 6.25mg tablet PO SCH ×2 (11:16→16:56)
[2022-01-29] MEDS: docusate sod 100mg capsule PO SCH ×2 (11:16→20:47)
[2022-01-29] MEDS: CefTRIAXone/D5W-Rocephin 1gm 50 ML IV SCH (11:16)
[2022-01-29] MEDS: dexamethasone 4mg/ml inj IV SCH ×2 (11:17→20:47)
[2022-01-29] MEDS: clopidogrel 75mg tablet PO SCH (11:17)
[2022-01-29] MEDS: atorvastatin 20mg tablet PO SCH (11:17)
[2022-01-29] MEDS: furosemide 10 MG/1 ML 10ml inj IV SCH ×2 (11:17→20:54)
[2022-01-29] MEDS: aspirin 81mg, enteric-coated 1 TAB TABLET.DR PO SCH (11:17)
[2022-01-29] MEDS: enoxaparin 40mg/0.4ml syringe SUBCUT SCH (11:18)
[2022-01-29 15:00] VITALS: BP 110/83
[2022-01-29 18:00] VITALS: BP 114/76
--- NOTE | 2022-01-29 18:24 | NUR ---
Problems reprioritized. Patient report given, questions answered & plan of care reviewed with Shelia SORIA.
--- NOTE | 2022-01-29 18:30 | NUR ---
Patient in room PCU 3010. I have received report from Mindi SORIA and had the opportunity to ask questions and assume patient care.
[2022-01-29] MEDS: tamsulosin 0.4mg capsule PO SCH (20:48)
[2022-01-29] MEDS ORDERED: PERFLUTREN PROTEIN-A MICROSPHR (Optison) 0.22 MG/ML 3ML VIAL IV ONE (21:25)
[2022-01-29 22:00] VITALS: BP 122/87
--- NOTE | 2022-01-29 22:30 | NUR ---
raker buffing wheel went in to start a new IV. Patient jerked and the needle she had in came out and then after that pt. refused to allow her to try again. raker buffing wheel informed him that he needed IV for vanco this shift and then rocephin in the AM, but he still refused to allow anyone to start a new PIV.
[2022-01-30] MEDS ORDERED: VANCOMYCIN LEVEL IV ONE (01:30)
[2022-01-30 02:00] VITALS: BP 147/79
[2022-01-30] MEDS: VANCOMYCIN 1,500MG inj. 1,500 MG in normal saline 500ml IV soln 300 ML IV SCH ×2 (02:00→14:16)
[2022-01-30 06:00] VITALS: BP 139/93
--- NOTE | 2022-01-30 06:43 | NUR ---
Problems reprioritized. Patient report given, questions answered & plan of care reviewed with Gregorio RN. Patient at is w/o IV d/t refusing.
[2022-01-30 06:55] LABS: BASOPHILS # (AUTO) 0.1 X10'3 (0-0.2); BASOPHILS % (AUTO) 0.4 % (0-1); EOSINOPHILS % (AUTO) 0.1 % (0-6); HEMATOCRIT 46.3 % (42.0-52.0); HEMOGLOBIN 15.4 g/dl (14.0-17.9); LYMPHOCYTES # (AUTO) 1.4 X10'3 (1.1-4.8); LYMPHOCYTES % (AUTO) 5.5 % (21-51); MEAN CORPUSCULAR HEMOGLOBIN 30.2 PG (27.0-31.0); MEAN CORPUSCULAR HGB CONC 33.3 g/dL (33.0-36.5); MEAN CORPUSCULAR VOLUME 90.9 FL (78-98); MEAN PLATELET VOLUME 10.2 FL (7.4-10.4); MONOCYTES # (AUTO) 1.6 X10'3 (0-0.9); MONOCYTES % (AUTO) 6.4 % (2-12); NEUTROPHILS # (AUTO) 22.7 X10'3 (1.8-7.7); NEUTROPHILS % (AUTO) 87.6 % (42-75); PLATELET COUNT 328 X10'3 (140-440)
[2022-01-30 06:59] LABS: WHITE BLOOD COUNT 25.9 X10'3 (4.5-11.0)
[2022-01-30 07:02] LABS: D-DIMER 1.08 MG/L FEU (0-0.50)
[2022-01-30 07:04] LABS: ALANINE AMINOTRANSFERASE 109 U/L (12-78); ALBUMIN 2.6 G/DL (3.4-5.0); ALBUMIN/GLOBULIN RATIO 0.6 (1.1-1.5); ALKALINE PHOSPHATASE 77 IU/L (46-116); ANION GAP 10 (8-16); ASPARTATE AMINO TRANSFERASE 30 U/L (10-37); BILIRUBIN,TOTAL 0.4 MG/DL (0.1-1.0); BLOOD UREA NITROGEN 41 MG/DL (7-18); BUN/CREATININE RATIO 34.7 (5.4-32.0); C-REACTIVE PROTEIN 2.16 MG/DL (0.0-0.5); CALCIUM 8.2 MG/DL (8.5-10.1); CHLORIDE 103 MMOL/L (99-107); CREATININE 1.18 MG/DL (0.60-1.10); GLUCOSE 132 MG/DL (70-104); LACTATE DEHYDROGENASE 326 U/L (85-227); MAGNESIUM 2.5 MG/DL (1.5-2.4); PHOSPHORUS 3.3 MG/DL (2.3-4.5); POTASSIUM 4.3 MMOL/L (3.5-5.1); SODIUM 138 MMOL/L (135-145); TOTAL CARBON DIOXIDE 24.8 MMOL/L (24-32); TOTAL PROTEIN 6.9 G/DL (6.4-8.2); VANCOMYCIN,TROUGH 13.9 UG/ML (6.0-14.0); eGFR 63 ML/MIN
[2022-01-30 07:39] LABS: TOTAL CELLS COUNTED 100
[2022-01-30 07:40] LABS: ANISOCYTOSIS 1+; LARGE PLATELETS FEW; PLATELET ESTIMATE NORMAL
--- NOTE | 2022-01-30 07:40 | NUR ---
PAGER ID: [phone] MESSAGE: Clrae Orestes Barreto RM 3010A critical WBC 25.9. Also, no IV access, paging PICC nurse for assistance, unable to admin IV meds until PIV access obtained. Thank You, RENNY
--- NOTE | 2022-01-30 07:43 | NUR ---
PICC GROUP PAGED TO REQUEST ASSISTANCE PLACING PIV, NOTIFED THE GROUP OF MISSED ABX AND MORE ABX DUE NOW, WELL CRITICAL WBC TO EXPLAIN THE URGENCY OF PLACEMENT
[2022-01-30] MEDS: K and/or MAG REPLACEMENT MC SCH ×2 (08:00→20:00)
--- NOTE | 2022-01-30 08:48 | NUR ---
PAGE SENT TO PICC GROUP NEED ASSISTANCE PLACING PIV JAZIEL IN ROOM 3010 NEEDS ABX ALREADY MISSED PREV DOSES
[2022-01-30] MEDS: lisinopril 10 MG tablet PO SCH (09:01)
[2022-01-30] MEDS: atorvastatin 20mg tablet PO SCH (09:01)
[2022-01-30] MEDS: docusate sod 100mg capsule PO SCH ×2 (09:01→19:57)
[2022-01-30] MEDS: aspirin 81mg, enteric-coated 1 TAB TABLET.DR PO SCH (09:01)
[2022-01-30] MEDS: clopidogrel 75mg tablet PO SCH (09:01)
[2022-01-30] MEDS: enoxaparin 40mg/0.4ml syringe SUBCUT SCH (09:02)
[2022-01-30] MEDS: carvedilol 6.25mg tablet PO SCH ×2 (09:03→16:50)
[2022-01-30] MEDS: CefTRIAXone/D5W-Rocephin 1gm 50 ML IV SCH (10:38)
[2022-01-30] MEDS: dexamethasone 4mg/ml inj IV SCH ×2 (10:38→19:37)
[2022-01-30] MEDS: furosemide 10 MG/1 ML 10ml inj IV SCH ×2 (10:38→19:57)
[2022-01-30 11:00] VITALS: BP 146/100
[2022-01-30] MEDS ORDERED: PERFLUTREN PROTEIN-A MICROSPHR (Optison) 0.22 MG/ML 3ML VIAL IV ONE (11:40)
--- NOTE | 2022-01-30 12:42 | NUR ---
PATIENTS IN ROOM AIR SCRUBBER/HEPPA FILTER WAS OFF THIS MORNING WHEN I ENTERED THE ROOM. I EDUCATED PATIENT ABOUT NOT TURNING IT OFF AND THE RISK OF COMPROMISING THE STAFF AND OTHER PATIENTS IN THE HOSPITAL. HE STATED TO ME DIDNT TURN IT OFF SOMEONE ELSE DID AND THEY FORGOT TO TURN IT BACK ON. I GAVE THE BENEFIT OF THE DOUBT AND THEN INFORMED HIM TO NOT LET ANYONE ELSE TURN IT OFF. I ENTERED HIS ROOM TO DELIVER HIS LUNCH AND FOUND IT OFF AGAIN. I ASKED HIM WHY IT WAS OFF HE TOLD ME HE TURNED IT OFF TO GET HIS [employer] PHONE ACTIVATED. I TOLD HIM THAT WAS UNACCEPTABLE, HE IS COMPROMISING ME, THE REST OF THE STAFF AND ALL THE PATIENTS. HE STATED THAT WAS NOT HIS PROBLEM. I EXPLAINED THAT WAS NOT ACCEPTABLE AND HE CANNOT TURN OF THE MACHINE FOR ANY LENGTH OF TIME. I NOTIFIED LUL CHARGE NURSE, LUL SPOKE TO PATIENT
[2022-01-30 15:00] VITALS: BP 123/91
--- NOTE | 2022-01-30 15:58 | NUR ---
Called Dr Mason office to obtain last chart note and H&P as requested by Farida Ray. Call went to recording that no one is avail to answer the phone at this time. Office closes in 1 hour. Will pass on in report this request. I will question patient about prev [place] in [place] when I next go into patient room to attempt obtaining those records as well
[2022-01-30 18:00] VITALS: BP 154/89
--- NOTE | 2022-01-30 18:30 | NUR ---
Patient in room PCU 3010. I have received report from and had the opportunity to ask questions and assume patient care.
--- NOTE | 2022-01-30 18:30 | NUR ---
Patient in room PCU 3010. I have received report from Gregorio SORIA and had the opportunity to ask questions and assume patient care.
--- NOTE | 2022-01-30 19:00 | NUR ---
Went in to see patient and the scrubber filter was turned off again. Asked patient why it was off, he said because he couldn't hear his son on the cell phone and had not spoken to him in over a month. Re-educated patient that the filter needs to stay ON at all times as he is compromising staff and other patients by not doing so. Patient made a promise that he would not touch it again. - We will see.
[2022-01-30] MEDS: tamsulosin 0.4mg capsule PO SCH (19:36)
[2022-01-30 22:00] VITALS: BP 128/97
[2022-01-30] MEDS: apixaban 5mg tablet PO SCH (23:15)
[2022-01-31 02:00] VITALS: BP 140/93
[2022-01-31] MEDS: VANCOMYCIN 1,500MG inj. 1,500 MG in normal saline 500ml IV soln 300 ML IV SCH (02:06)
[2022-01-31 05:26] LABS: BASOPHILS # (AUTO) 0.4 X10'3 (0-0.2); BASOPHILS % (AUTO) 1.5 % (0-1); EOSINOPHILS # (AUTO) 0.2 X10'3 (0-0.9); EOSINOPHILS % (AUTO) 0.9 % (0-6); HEMATOCRIT 47.2 % (42.0-52.0); HEMOGLOBIN 15.5 g/dl (14.0-17.9); LYMPHOCYTES # (AUTO) 1.2 X10'3 (1.1-4.8); LYMPHOCYTES % (AUTO) 4.6 % (21-51); MEAN CORPUSCULAR HEMOGLOBIN 29.9 PG (27.0-31.0); MEAN CORPUSCULAR HGB CONC 32.9 g/dL (33.0-36.5); MEAN PLATELET VOLUME 9.9 FL (7.4-10.4); MONOCYTES # (AUTO) 1.4 X10'3 (0-0.9); MONOCYTES % (AUTO) 5.3 % (2-12); NEUTROPHILS # (AUTO) 22.4 X10'3 (1.8-7.7); NEUTROPHILS % (AUTO) 87.7 % (42-75); PLATELET COUNT 384 X10'3 (140-440); RED BLOOD COUNT 5.19 X10'6 (4.70-6.10); RED CELL DISTRIBUTION WIDTH 16.4 % (11.5-14.5)
[2022-01-31 05:31] LABS: WHITE BLOOD COUNT 25.5 X10'3 (4.5-11.0)
[2022-01-31 05:45] LABS: ALANINE AMINOTRANSFERASE 94 U/L (12-78); ALBUMIN 2.6 G/DL (3.4-5.0); ALBUMIN/GLOBULIN RATIO 0.6 (1.1-1.5); ALKALINE PHOSPHATASE 78 IU/L (46-116); ANION GAP 9 (8-16); ASPARTATE AMINO TRANSFERASE 19 U/L (10-37); BILIRUBIN,TOTAL 0.5 MG/DL (0.1-1.0); BLOOD UREA NITROGEN 43 MG/DL (7-18); BUN/CREATININE RATIO 26.4 (5.4-32.0); CALCIUM 8.4 MG/DL (8.5-10.1); CHLORIDE 103 MMOL/L (99-107); CREATININE 1.63 MG/DL (0.60-1.10); GLUCOSE 161 MG/DL (70-104); MAGNESIUM 2.2 MG/DL (1.5-2.4); SODIUM 140 MMOL/L (135-145); TOTAL CARBON DIOXIDE 28.5 MMOL/L (24-32); TOTAL PROTEIN 6.8 G/DL (6.4-8.2); eGFR 43 ML/MIN
[2022-01-31 06:08] LABS: TOTAL CELLS COUNTED 100
[2022-01-31 06:09] LABS: ANISOCYTOSIS 1+; LARGE PLATELETS FEW; PLATELET ESTIMATE NORMAL; TOXIC GRANULATION 1+
--- NOTE | 2022-01-31 06:30 | NUR ---
Problems reprioritized. Patient report given, questions answered & plan of care reviewed with Gregorio RN. Everytime this nurse rounded on patient, the hepa filter was indeed on.
[2022-01-31] MEDS: K and/or MAG REPLACEMENT MC SCH (08:00)
[2022-01-31] MEDS: docusate sod 100mg capsule PO SCH (08:44)
[2022-01-31] MEDS: apixaban 5mg tablet PO SCH (08:44)
[2022-01-31] MEDS: carvedilol 6.25mg tablet PO SCH (08:44)
[2022-01-31] MEDS: dexamethasone 4mg/ml inj IV SCH (08:44)
[2022-01-31] MEDS: atorvastatin 20mg tablet PO SCH (08:44)
[2022-01-31] MEDS: furosemide 10 MG/1 ML 10ml inj IV SCH (08:44)
[2022-01-31 08:45] VITALS: BP_SYST 138
[2022-01-31] MEDS: aspirin 81mg, enteric-coated 1 TAB TABLET.DR PO SCH (08:45)
[2022-01-31] MEDS: lisinopril 10 MG tablet PO SCH (08:45)
[2022-01-31] MEDS: CefTRIAXone/D5W-Rocephin 1gm 50 ML IV SCH (08:45)
--- NOTE | 2022-01-31 09:08 | NUR ---
Patient was found by nurse staff community health standing in doorway with door open asking for his breakfast tray. It should be noted the call light was not on at this time. I received report from Vicky SORIA NOC shift who reported to me that patient had turned off his air filter during NOC shift. Per her report he promised not to turn it off again. The importance of the filter and isolation status has been explained to the patient multiple times by multiple people and continually promising to be compliant however, he continues to compromise myself, other staff and patients. I have lost liz in his promises at this point. At one point this AM he stated he wanted to leave the hospital if he isnt even allowed to open his door, I told him I needed to remove his midline and he needed to sign an AMA form. he stated he is not leaving against advice but that we were throwing him out. I explained he was not being thrown out at this point but his non comlpliance can not be tolerated. He stated he wanted to talk to a natural gas field processing supervisor and his doctor. I informed him my manager investment banking would be coming to talk to him (per housekeeper cleaning cooking Batsheva when Charge nurse Mindi contacted her after he was found standing in doorway) and I would page his Dr. At this moment he is receiving his IV antibiotics waiting for his Dr to come talk to him. I will page Dr HUMMEL
--- NOTE | 2022-01-31 09:26 | NUR ---
PAGER ID: [phone] MESSAGE: re Orestes Barreto RM 8001 he is requesting to talk to you, he is very agitated and threatening AMA thank you RENNY SORIA
--- NOTE | 2022-01-31 10:06 | NUR ---
[phone] Message: re Orestes Barreto RM 8747 he is requesting to talk to you, he is very agitated and threatening AMA and being noncompliant with isolation status thank you RENNY SORIA
[2022-01-31] MEDS ORDERED: DEXA4TAB67 PO (11:13)
[2022-01-31] MEDS ORDERED: APIX5TAB3 PO (11:13)
[2022-01-31] MEDS ORDERED: ALBU8.5H17 INH (11:13)
[2022-01-31] MEDS ORDERED: LACT1CAP26 PO (11:15)
[2022-01-31] MEDS ORDERED: LINE600T12 PO (11:15)
[2022-02-01] MEDS ORDERED: VANCOMYCIN LEVEL IV ONE (01:30)
== END 2022-01-31 12:03 | disposition home or self-care (01) | DRG 720 ==
LOC: ER 14:35 → ED HOLD 17:26 → EDBEDREQ 01-25 05:54 → PCU 3S 01-28 17:59
PROVIDERS: ADMIT Family Medicine; ATTEND Family Medicine
PROC: XW033E5 Introduction of Remdesivir Anti-infective into Peripheral Vein, Percutaneous Approach, New Technology Group 5 (ICD-10-PCS; principal; 2022-01-25)
DX: A41.9 Sepsis, unspecified organism (principal); J96.90 Respiratory failure, unspecified, unspecified whether with hypoxia or hypercapnia; G93.41 Metabolic encephalopathy; I50.23 Acute on chronic systolic (congestive) heart failure; U07.1 COVID-19; I42.9 Cardiomyopathy, unspecified; E11.9 Type 2 diabetes mellitus without complications; E78.5 Hyperlipidemia, unspecified; I11.0 Hypertensive heart disease with heart failure; R55 Syncope and collapse; E87.6 Hypokalemia; F17.210 Nicotine dependence, cigarettes, uncomplicated; Z60.2 Problems related to living alone; F15.10 Other stimulant abuse, uncomplicated; L03.116 Cellulitis of left lower limb; I25.10 Atherosclerotic heart disease of native coronary artery without angina pectoris; I51.3 Intracardiac thrombosis, not elsewhere classified; N17.9 Acute kidney failure, unspecified; N39.0 Urinary tract infection, site not specified; N40.0 Benign prostatic hyperplasia without lower urinary tract symptoms; Z79.02 Long term (current) use of antithrombotics/antiplatelets; Z79.82 Long term (current) use of aspirin; Z82.49 Family history of ischemic heart disease and other diseases of the circulatory system; I25.2 Old myocardial infarction; Z86.73 Personal history of transient ischemic attack (TIA), and cerebral infarction without residual deficits; Z91.14 Patient's other noncompliance with medication regimen; Z91.19 Patient's noncompliance with other medical treatment and regimen; Z95.1 Presence of aortocoronary bypass graft; Z95.5 Presence of coronary angioplasty implant and graft; V89.2XXA Person injured in unspecified motor-vehicle accident, traffic, initial encounter; Y93.89 Activity, other specified; Y92.488 Other paved roadways as the place of occurrence of the external cause; Y99.8 Other external cause status; Z79.899 Other long term (current) drug therapy
CPT/HCPCS: 36410; 36415; 70450; 71045; 73552; 80048; 80053; 80202; 80305; 80320; 81001; 83605; 83615; 83735; 84100; 84132; 84145; 85007; 85025; 85379; 86140; 87040; 87081; 87088; 87811; 93005; 93306; 93970; 94760; 99285; A4615; A6212; A6258; C1751; G0378; J0696; J1100; J1650; J1940; J2405; J3370; J3490; J7030; J7040; Q9956